=== PATIENT | male | born 1975 | race African-American/Black ===

== ENCOUNTER 2025-01-16 14:09 | Emergency (ER) | payer OTHER ==
[~2025-01-16] VITALS: Ht 193 cm; Wt 87.0 kg
[2025-01-16 14:15] VITALS: PULSE 89; RESP 16; O2SAT 100
[2025-01-16 14:34] VITALS: BP 108/83; TEMP 36.6; O2SAT 100
[2025-01-16] MEDS: IBUPROFEN 600MG TABLET PO ONE (18:15)
== END 2025-01-16 20:20 | disposition left against medical advice (07) ==
LOC: EDBD 14:09 → ER 14:09
DX: S90.32XA Contusion of left foot, initial encounter (principal); M79.675 Pain in left toe(s); R60.0 Localized edema; X58.XXXA Exposure to other specified factors, initial encounter; Y93.89 Activity, other specified; Y92.89 Other specified places as the place of occurrence of the external cause; Y99.8 Other external cause status
CPT/HCPCS: 73630; 99283